=== PATIENT | male | born 1990 | race Caucasian/White ===

== ENCOUNTER 2018-04-12 18:35 | Emergency (ER) | payer MEDICAID ==
[~2018-04-12] VITALS: Ht 177.8 cm; Wt 70.0 kg
[2018-04-12 18:55] VITALS: BP 146/86
--- NOTE | 2018-04-12 19:00 | NUR ---
MARY ELLEN NELA AFTER TEXTING FRIEND THAT HE TOOK [address]. PT STATES HE HAS BEEN HAVING SI SINCE A FRIEND IN NOVEMBER. PTS HAS FRONT OFFICE REPRESENTATIVE SMITHA TAMIKA NUMBER [phone]. BELONGINGS PLACED IN ONE BAG AND LABELED.
--- NOTE | 2018-04-12 19:04 | NUR ---
RECEIVED BS REPORT FROM LUIS FERNANDO DENNEY. CAREGIVER AT . ROOM IS SECURED. SITTER IN [place]. PT. AWARE OF NEED FOR URINE SAMPLE.
[2018-04-12] MEDS ORDERED: CLON0.1T22 PO (19:08)
[2018-04-12] MEDS ORDERED: CALC625T13 PO (19:08)
[2018-04-12] MEDS ORDERED: ESOM40CA PO (19:08)
[2018-04-12] MEDS ORDERED: CLOZ100T PO ×2 (19:08→19:10)
[2018-04-12] MEDS ORDERED: LISI-170 PO (19:08)
[2018-04-12 19:22] LABS: BASOPHILS # (AUTO) 0.02 x10^3/uL (0-0.1); BASOPHILS % (AUTO) 0 % (0-1); EOSINOPHILS % (AUTO) 0 % (1-7); LYMPHOCYTES # (AUTO) 2.37 x10^3/uL (1-3.4); LYMPHOCYTES % (AUTO) 32 % (22-44); MD NO; MEAN CORPUSCULAR HEMOGLOBIN 26.6 pg (27.5-34.5); MEAN CORPUSCULAR HGB CONC 32.3 g/dL (33.2-36.2); MEAN CORPUSCULAR VOLUME 82.6 fL (81-97); MEAN PLATELET VOLUME 9.9 fL (7.4-10.4); MONOCYTES % (AUTO) 8 % (2-9); NEUTROPHILS # (AUTO) 4.36 x10^3/uL (1.8-6.8); NEUTROPHILS % (AUTO) 59 % (42-75); PLATELET COUNT 208 x10^3/uL (130-400); RED BLOOD COUNT 5.18 x10^6/uL (4.38-5.82); RED CELL DISTRIBUTION WIDTH 15.6 % (9.4-14.8)
[2018-04-12 19:34] LABS: ALANINE AMINOTRANSFERASE 17 U/L (12-78); ALBUMIN 3.7 g/dL (3.4-5.0); ANION GAP 5 mmol/L (5-15); CALCIUM 8.4 mg/dL (8.5-10.1); CHLORIDE 109 mmol/L (98-107); CREATININE 0.93 mg/dL (0.7-1.3); SALICYLATE LEVEL < 1.7 mg/dL (2.8-20.0)
[2018-04-12 19:36] LABS: ALKALINE PHOSPHATASE 49 U/L (45-117); BILIRUBIN,TOTAL 0.4 mg/dL (0.2-1.0); TOTAL PROTEIN 6.8 g/dL (6.4-8.2)
[2018-04-12 19:37] LABS: ACETAMINOPHEN < 2 mcg/mL (10-30)
--- NOTE | 2018-04-12 19:38 | NUR ---
URINE HAS BEEN COLLECTED AND SENT TO LAB. MED REQ COMPLETED. SMITHA LUNDBERG (CODING CLERKS SUPERVISOR GUARDIAN) CALLED AND GAVE VERBAL CONSENT TO TREAT PT. SHE REPORTS THE OFFICE WILL SEND OVER GUARDIANSHIP PAPERS TOMORROW AM AND TO CALL HER BACK FOR ANY FURTHER NEEDS.
[2018-04-12 20:04] LABS: AMPHETAMINE SCREEN, URINE Negative (Negative); BARBITURATE SCREEN, URINE Negative (Negative); BENZODIAZEPINE SCREEN, URINE Negative (Negative); CANNABINOID SCREEN, URINE Negative (Negative); COCAINE SCREEN, URINE Negative (Negative); METHADONE SCREEN, URINE Negative (Negative); OPIATE SCREEN, URINE Negative (Negative)
--- NOTE | 2018-04-12 21:28 | NUR ---
PT. CONTINUES RESTING ON GURNEY WITH NADN. CAREGIVER REMAINS AT BS FOR SUPPORT. ROOM IS SECURED. SITTER IN [place].
--- NOTE | 2018-04-12 21:47 | NUR ---
TELEPSYCH CONSULT INITIATED
--- NOTE | 2018-04-12 22:16 | NUR ---
CALLED TELEPSYCH TO GET AN ESTIMATED TIME FOR CONSULT TO TAKE PLACE. PT. HAS 4 PEOPLE IN FRONT OF HIM PER THEM. PT. CONTINUES RESTING ON GURNEY SPEAKING WITH CAREGIVER. CALM/COOPERATIVE. PT. AND CAREGIVER UPDATED ON ESTIMATED TIME. PT. DENIES NEEDS. ROOM SECURED.
--- NOTE | 2018-04-12 22:39 | NUR ---
REPORT TO ANABELLE MURPHY.
--- NOTE | 2018-04-12 23:14 | NUR ---
TELEPSYCH EVAL COMPLETED. PT. TO BE D/C HOME. BELONGINGS RETURNED TO PT. CAREGIVER REMAINS AT BS.
--- NOTE | 2018-04-12 23:45 | NUR ---
AWAITING D/C PAPERS BY ZOILA.
== END 2018-04-13 00:09 | disposition home or self-care (01) ==
LOC: ED 22:28
DX: F32.9 Major depressive disorder, single episode, unspecified (principal)
CPT/HCPCS: 36415; 80053; 80307; 80329; 85025; 99284; G0480

== ENCOUNTER 2018-08-18 16:51 | Emergency (ER) | payer MEDICAID ==
[~2018-08-18] VITALS: Ht 177.8 cm; Wt 88.0 kg
[~2018-08-18 16:51] MED LIST: CALC625T13 PO; CLON0.1T22 PO; CLOZ100T PO; ESOM40CA PO; LISI-170 PO
[2018-08-18] MEDS ORDERED: ONDANSETRON ODT 4 MG PO ONE (17:00)
--- NOTE | 2018-08-18 17:07 | NUR ---
PT STATES "HE HAS BEEN THROWING UP FOR A FEW DAYS. IT WAS RED LAST NIGHT AND YELLOW THIS AM" PT ALSO STATES HE HAS BEEN HAVING CHEST PAIN THAT "GOES AWAY AND COMES BACK". VS STABLE. ACCOMPANIED BY [facility].
[2018-08-18 17:15] VITALS: BP 130/72
[2018-08-18 17:29] LABS: BASOPHILS # (AUTO) 0.03 x10^3/uL (0-0.1); BASOPHILS % (AUTO) 0 % (0-1); EOSINOPHILS % (AUTO) 0 % (1-7); LYMPHOCYTES # (AUTO) 2.36 x10^3/uL (1-3.4); LYMPHOCYTES % (AUTO) 29 % (22-44); MD NO; MEAN CORPUSCULAR HGB CONC 32.7 g/dL (33.2-36.2); MEAN CORPUSCULAR VOLUME 82.7 fL (81-97); MEAN PLATELET VOLUME 10.2 fL (7.4-10.4); MONOCYTES # (AUTO) 0.72 x10^3/uL (0.2-0.8); MONOCYTES % (AUTO) 9 % (2-9); NEUTROPHILS # (AUTO) 5.17 x10^3/uL (1.8-6.8); NEUTROPHILS % (AUTO) 63 % (42-75); PLATELET COUNT 277 x10^3/uL (130-400); RED BLOOD COUNT 5.52 x10^6/uL (4.38-5.82); RED CELL DISTRIBUTION WIDTH 14.6 % (9.4-14.8)
[2018-08-18] MEDS ORDERED: ONDANSETRON ODT 4 MG ONE (17:32)
[2018-08-18 17:37] LABS: ALANINE AMINOTRANSFERASE 23 U/L (12-78); ALBUMIN 4.4 g/dL (3.4-5.0); ANION GAP 7 mmol/L (5-15); CALCIUM 9.3 mg/dL (8.5-10.1); CHLORIDE 105 mmol/L (98-107); CREATININE 1.02 mg/dL (0.7-1.3)
[2018-08-18 17:39] LABS: ALKALINE PHOSPHATASE 46 U/L (45-117); TOTAL PROTEIN 7.5 g/dL (6.4-8.2)
[2018-08-18] MEDS ORDERED: MAALOX/HYOSCYAMINE/LIDOCAINE 45 ML BTL PO ONE (18:00)
--- NOTE | 2018-08-18 18:57 | NUR ---
PT STATES "NAUSEAS IS BETTER". REPORT GIVEN TO WILEY
--- NOTE | 2018-08-18 19:00 | NUR ---
REPORT OF PT FROM LUIS FERNANDO CHAPA AND ASSUMING CARE OF PT AT THIS TIME.
[2018-08-18] MEDS ORDERED: MAALOX/HYOSCYAMINE/LIDOCAINE 45 ML BTL ONE (19:32)
--- NOTE | 2018-08-18 20:52 | NUR ---
PT D/C WITH D/C SUMMARY AND SCRIPT. ALL QUESTIONS ANSWERED. PT AMBULATES TO REGISTRATION DESK WITH STEADY GAIT FOR D/C HOME. PT DENIES ANY OTHER NEEDS PERTAINING TO THIS VISIT.
== END 2018-08-18 20:55 | disposition home or self-care (01) ==
LOC: ED 19:18
DX: K21.0 Gastro-esophageal reflux disease with esophagitis (principal)
CPT/HCPCS: 36415; 80053; 83690; 85025; 99283; Q0162

== ENCOUNTER 2018-09-04 08:39 | Emergency (ER) | payer MEDICAID ==
[~2018-09-04] VITALS: Ht 177.8 cm; Wt 98.1 kg
[2018-09-04 08:53] VITALS: BP 138/80
--- NOTE | 2018-09-04 09:30 | NUR ---
legal guardian Simón Ortiz [phone]. Asked to call them for updates.
--- NOTE | 2018-09-04 09:58 | NUR ---
Pt ambulatory to room from lobby with steady gait.
--- NOTE | 2018-09-04 10:12 | NUR ---
PT PROVIDED WITH URINAL FOR URINE SPECIMAN
--- NOTE | 2018-09-04 10:27 | NUR ---
DISCUSSED URINE SPECIMAN ORDER WITH DR. SHERMAN, NOT NEEDED AT THIS TIME.
--- NOTE | 2018-09-04 10:34 | NUR ---
guardian called to notify of dc home. patient is safe to dc home.
== END 2018-09-04 10:36 | disposition home or self-care (01) ==
LOC: ED 10:01
DX: S50.311A Abrasion of right elbow, initial encounter (principal); S30.810A Abrasion of lower back and pelvis, initial encounter; W01.0XXA Fall on same level from slipping, tripping and stumbling without subsequent striking against object, initial encounter; Y93.89 Activity, other specified; Y92.410 Unspecified street and highway as the place of occurrence of the external cause; Y99.8 Other external cause status
CPT/HCPCS: 99283

== ENCOUNTER 2019-04-12 21:32 | Emergency (ER) | payer MEDICAID ==
[~2019-04-12] VITALS: Ht 177.8 cm; Wt 83.3 kg
[2019-04-12 21:49] VITALS: BP 125/66
[2019-04-12] MEDS ORDERED: DIPH,PERTUSS(ACELL),TET VAC/PF 0.5 ML IM-VACC ONE (22:30)
--- NOTE | 2019-04-12 23:09 | NUR ---
Patient/Caregiver given discharge instructions and they have confirmed that they understand the instructions. Patient ambulatory with steady gait.
== END 2019-04-12 23:12 | disposition home or self-care (01) ==
LOC: ED 22:50
DX: S60.222A Contusion of left hand, initial encounter (principal); S60.512A Abrasion of left hand, initial encounter; W01.0XXA Fall on same level from slipping, tripping and stumbling without subsequent striking against object, initial encounter; Y93.89 Activity, other specified; Y92.410 Unspecified street and highway as the place of occurrence of the external cause; Y99.8 Other external cause status
CPT/HCPCS: 90471; 90715

== ENCOUNTER 2019-04-14 19:03 | Emergency (ER) | payer MEDICAID ==
[~2019-04-14] VITALS: Ht 177.8 cm; Wt 83.9 kg
[2019-04-14 19:05] VITALS: BP 111/49
--- NOTE | 2019-04-14 19:14 | NUR ---
PLEASANT YOUNG MAN HERE NOTING THAT HE WAS SEEN HERE SEVERAL DAYS AGO AFTER FALLING AND THAT HIS HAND STILL HURTS. HAS NOT TAKEN ANY OTC MEDICATION, STATES THAT HIS DOCTOR TOLD HIM NOT TO TAKE NSAIDS RELATED TO HIS REFLUX. PT REMOVING DRESSING
[2019-04-14] MEDS ORDERED: ANTACID (19:16)
== END 2019-04-14 19:34 | disposition home or self-care (01) ==
LOC: ED 19:23
DX: S60.222A Contusion of left hand, initial encounter (principal); W18.30XA Fall on same level, unspecified, initial encounter; Y93.89 Activity, other specified; Y92.328 Other athletic field as the place of occurrence of the external cause; Y99.8 Other external cause status
CPT/HCPCS: 99282

== ENCOUNTER 2019-05-19 14:04 | Emergency (ER) | payer MEDICAID ==
[~2019-05-19] VITALS: Ht 177.8 cm; Wt 76.8 kg
[~2019-05-19 14:04] MED LIST changes: +ANTACID
--- NOTE | 2019-05-19 15:31 | NUR ---
ENGINE TESTER: PT TO ROOM FROM ASHLIE ABEL
[2019-05-19 16:05] LABS: BASOPHILS # (AUTO) 0.02 x10^3/uL (0-0.1); BASOPHILS % (AUTO) 0 % (0-1); EOSINOPHILS # (AUTO) 0.05 x10^3/uL (0-0.4); EOSINOPHILS % (AUTO) 1 % (1-7); LYMPHOCYTES # (AUTO) 2.02 x10^3/uL (1-3.4); LYMPHOCYTES % (AUTO) 24 % (22-44); MD NO; MEAN CORPUSCULAR HEMOGLOBIN 24.3 pg (27.5-34.5); MEAN CORPUSCULAR HGB CONC 31.7 g/dL (33.2-36.2); MEAN CORPUSCULAR VOLUME 76.8 fL (81-97); MONOCYTES # (AUTO) 0.48 x10^3/uL (0.2-0.8); MONOCYTES % (AUTO) 6 % (2-9); NEUTROPHILS # (AUTO) 5.77 x10^3/uL (1.8-6.8); NEUTROPHILS % (AUTO) 69 % (42-75); PLATELET COUNT 253 x10^3/uL (130-400); RED BLOOD COUNT 5.53 x10^6/uL (4.38-5.82); RED CELL DISTRIBUTION WIDTH 16.6 % (9.4-14.8)
[2019-05-19 16:17] LABS: ALANINE AMINOTRANSFERASE 19 U/L (12-78); ALBUMIN 4.3 g/dL (3.4-5.0); ANION GAP 4 mmol/L (5-15); CALCIUM 8.8 mg/dL (8.5-10.1); CHLORIDE 109 mmol/L (98-107)
[2019-05-19 16:20] LABS: ALKALINE PHOSPHATASE 32 U/L (45-117); BILIRUBIN,TOTAL 0.7 mg/dL (0.2-1.0); CREATININE 0.92 mg/dL (0.7-1.3); TOTAL PROTEIN 7.3 g/dL (6.4-8.2)
[2019-05-19 17:01] VITALS: BP 138/78
== END 2019-05-19 17:04 | disposition home or self-care (01) ==
LOC: ED 16:56
DX: R10.84 Generalized abdominal pain (principal); J02.8 Acute pharyngitis due to other specified organisms; R11.0 Nausea; B97.89 Other viral agents as the cause of diseases classified elsewhere; F17.200 Nicotine dependence, unspecified, uncomplicated; K20.9 Esophagitis, unspecified
CPT/HCPCS: 36415; 80053; 83690; 85025; 87081; 87880; 99283

== ENCOUNTER 2020-03-14 12:34 | Emergency (ER) | payer MEDICARE, MEDICAID ==
[~2020-03-14] VITALS: Ht 177.8 cm; Wt 75.6 kg
--- NOTE | 2020-03-14 13:09 | NUR ---
PT BIB EMS FOR SUICIDE ATTEMPT ON [employer]. PT STATES "I GOT INTO AN ARGUEMENT WITH MY GF AND SHE TOLD ME I DIDNT HAVE ANY FRIENDS SO I WENT ON [employer] LIVE AND TOOK A BUNCH OF MY LISINIPRIL PILLS. THAT WAS AT ABOUT 11AM AND AT THAT TIME I DID WANT TO BE . HOWEVER, SHE SINCE THEN APOLOGIZED AND I NO LONGER WISH TO BE ." PT RESTING IN [facility]. CONNECTED TO ALL MONITORING EQUIPMENT. UA SENT. PT BELONGINGS HAVE BEEN PLACED IN THE SECURITY LOCKER AND THERE IS A PSA SITTING OUTSIDE THE ROOM WITH A CLEAR LINE OF VISION OF PT. WILL CONTINUE TO MONITOR.
--- NOTE | 2020-03-14 13:48 | NUR ---
REPORT GIVEN TO DARIEL GOULD
[2020-03-14 13:50] LABS: MICROSCOPIC NOT IND
[2020-03-14 13:58] LABS: BASOPHILS % (AUTO) 0 % (0-1); EOSINOPHILS % (AUTO) 0 % (1-7); LYMPHOCYTES % (AUTO) 15 % (22-44); MEAN CORPUSCULAR HEMOGLOBIN 25.3 pg (27.5-34.5); MEAN CORPUSCULAR HGB CONC 32.3 g/dL (33.2-36.2); MEAN PLATELET VOLUME 9.7 fL (7.4-10.4); MONOCYTES % (AUTO) 8 % (2-9); NEUTROPHILS % (AUTO) 77 % (42-75); PLATELET COUNT 190 x10^3/uL (130-400); RED BLOOD COUNT 5.14 x10^6/uL (4.38-5.82); RED CELL DISTRIBUTION WIDTH 14.9 % (9.4-14.8)
[2020-03-14 14:01] LABS: MD NO
[2020-03-14 14:01] LABS: AMPHETAMINE SCREEN, URINE Negative (Negative); BARBITURATE SCREEN, URINE Negative (Negative); BENZODIAZEPINE SCREEN, URINE Negative (Negative); CANNABINOID SCREEN, URINE Negative (Negative); COCAINE SCREEN, URINE Negative (Negative); METHADONE SCREEN, URINE Negative (Negative); OPIATE SCREEN, URINE Negative (Negative)
[2020-03-14 14:10] LABS: ALBUMIN 3.8 g/dL (3.4-5.0); ANION GAP 5 mmol/L (5-15); CALCIUM 9.1 mg/dL (8.5-10.1); CHLORIDE 108 mmol/L (98-107); CREATININE 0.94 mg/dL (0.7-1.3)
[2020-03-14 14:15] LABS: SALICYLATE LEVEL < 1.7 mg/dL (2.8-20.0)
[2020-03-14 16:27] VITALS: BP 118/65
--- NOTE | 2020-03-14 16:33 | NUR ---
PT RESTING IN [place] AT THIS TIME, S[place].
== END 2020-03-14 17:02 | disposition home or self-care (01) ==
LOC: ED 14:30
DX: F43.0 Acute stress reaction (principal); R45.851 Suicidal ideations; F32.9 Major depressive disorder, single episode, unspecified; R94.31 Abnormal electrocardiogram [ECG] [EKG]
CPT/HCPCS: 36415; 80048; 80299; 80307; 80329; 81003; 82040; 85025; 87426; 93005; 99285; G0480

== ENCOUNTER 2020-10-26 09:14 | Emergency (ER) | payer MEDICARE, MEDICAID ==
[~2020-10-26] VITALS: Ht 177.8 cm; Wt 74.0 kg
--- NOTE | 2020-10-26 09:14 | NUR ---
Pt arrived via EMS and found sitting on bed. During EMS report pt attempting to leave stating he did not want to be here. EMS able to redirect pt back into room for evaluation and states he was making S.I. statements and hitting himself in the head enroute here. Pt has flat affect, is verbalizing emotional upset and anxiety due to his best friend blocking all contact and threatening a TPO placement on him. Pt able to be redirected to remove all clothing and keep phone. Pt declined a blanket at this time.
--- NOTE | 2020-10-26 09:25 | NUR ---
timber management technician present for 1:1 direct observation. Once tech arrived this RN able to inform gas charger of placement of pt on a legal hold due to high risk for self-harm and elopement.
--- NOTE | 2020-10-26 09:45 | NUR ---
Pt moved by bed to ER room 43 and phone removed from room, placed with pt's labeled belongings outside of room, and awaiting MD evaluation. Pt hitting bedrails with fists with moderate intensity only for brief period after phone removed and threw call light onto floor. 1:[address] remains in place. taxi proprietor updated to pt behaviors and MD handed Legal Hold paperwork.
--- NOTE | 2020-10-26 09:55 | NUR ---
Report given to LUIS FERNANDO Bliss and care transferred. Pt noted pacing in room off/on with continued statements of going to leave.
--- NOTE | 2020-10-26 10:15 | NUR ---
Tele Psych consult requested.
[2020-10-26] MEDS ORDERED: SERT50TA PO (10:52)
[2020-10-26] MEDS ORDERED: ARIP20TA5 PO (10:52)
--- NOTE | 2020-10-26 10:55 | NUR ---
ALLISON ([phone]), [facility] TAG AND LABEL CUTTER, CALLED TO INFORM THIS RN THAT THE PT HAS A LEGAL GUARDIAN, PEDRITO MARTE ([phone]), AND THAT HE LIVES IN [facility] AT [address]. PEDRITO MARTE CALLED AFTER TO GET UPDATE ON PT AND STATED SHE WILL FAX THE GUARDIAN PAPERWORK TO [facility].
[2020-10-26 12:26] VITALS: BP 129/81
--- NOTE | 2020-10-26 13:03 | NUR ---
REPORT TO LUIS FERNANDO NASH.
--- NOTE | 2020-10-26 13:37 | NUR ---
PT RESTING INBED, CALL LIGHT IN REACH. SAFETY PRECAUTIONS IN PLACE, MEAL PROVIDED.
--- NOTE | 2020-10-26 14:18 | NUR ---
TELEPSYCH IN PROCESS.
--- NOTE | 2020-10-26 14:47 | NUR ---
DC INSTRUCTIONS REVIEWED.
== END 2020-10-26 14:48 | disposition home or self-care (01) ==
LOC: ED 13:30
DX: R45.851 Suicidal ideations (principal); E11.9 Type 2 diabetes mellitus without complications; F90.9 Attention-deficit hyperactivity disorder, unspecified type
CPT/HCPCS: 99285